=== PATIENT | female | born 1950 | race Caucasian/White ===

== ENCOUNTER → 2018-01-03 | Outpatient (CLI) | payer MEDICARE, OTHER | END | disposition home or self-care (01) | LOC: CFH 09:24 | PROVIDERS: ATTEND Family Medicine | DX: Z12.31 Encounter for screening mammogram for malignant neoplasm of breast (principal) | CPT/HCPCS: 77067 ==

== ENCOUNTER 2019-01-17 10:09 | Outpatient (CLI) | payer MEDICARE | END 2019-01-17 23:59 | disposition home or self-care (01) | LOC: CFH 10:09 | PROVIDERS: ATTEND Family Medicine | DX: Z12.31 Encounter for screening mammogram for malignant neoplasm of breast (principal); M85.88 Other specified disorders of bone density and structure, other site; Z78.0 Asymptomatic menopausal state | CPT/HCPCS: 77080; 77067 ==

== ENCOUNTER 2020-01-16 09:11 | Outpatient (CLI) | payer MEDICARE | END 2020-01-16 23:59 | disposition home or self-care (01) | LOC: CFH 09:11 | PROVIDERS: ATTEND Family Medicine | DX: Z12.31 Encounter for screening mammogram for malignant neoplasm of breast (principal) | CPT/HCPCS: 77063; 77067 ==

== ENCOUNTER → 2021-02-02 | Outpatient (CLI) | payer MEDICARE | END | disposition home or self-care (01) | LOC: CFH 08:14 | PROVIDERS: ATTEND Physician Assistant | DX: Z12.31 Encounter for screening mammogram for malignant neoplasm of breast (principal); M85.89 Other specified disorders of bone density and structure, multiple sites | CPT/HCPCS: 77063; 77067; 77080 ==